=== PATIENT | female | born 1995 | race African-American/Black ===

== ENCOUNTER 2019-07-25 05:25 | Inpatient (IN) ==
[2019-07-25] MEDS ORDERED: LACTATED RINGERS 500 ML IV PRN (05:42)
[2019-07-25] MEDS ORDERED: ONDANSETRON 4 MG/2 ML VIAL IV PRN ×2 (05:42→18:18)
[2019-07-25] MEDS ORDERED: BUTORPHANOL 2 MG/ML VIAL IV PRN (05:42)
[2019-07-25] MEDS ORDERED: MEPERIDINE 50 MG/1 ML VIAL IV PRN (05:42)
[2019-07-25] MEDS ORDERED: OXYTOCIN/LR 20 UNIT/1,000 ML BAG IV SCH (06:00)
[2019-07-25] MEDS: LACTATED RINGERS 1,000 ML IV SCH ×2 (06:10→17:00)
[2019-07-25 06:21] LABS: Basophils % 0.6 % (0.0-0.8); Eosinophils # 0.1 10*3/uL (0.0-0.87); Eosinophils % 1.5 % (0.00-10.9); Hematocrit 33.6 VOL% (35.7-47.0); Hemoglobin 10.5 GM/DL (12.0-16.0); Immature Granulocytes % 0.3 %; Immature Granulocytes Absolute 0.02 #; Lymphocytes # 2.5 10*3/uL (1.4-4.0); Lymphocytes % 37.7 % (21.3-54.2); Mean Corpuscular HGB Conc 31.3 GM/DL (32-36); Mean Corpuscular Volume 90.3 FL (87-102); Mean Platelet Volume 11.1 FL (9.6-12.0); Monocytes % 10.7 % (1.7-12.7); Neutrophils % 49.2 % (38.7-73.9); Platelet Count 305 T/CUMM (130-400); Red Blood Count 3.72 MC/CUMM (3.8-5.5); Red Cell Distribution Width 13.5 % (9.3-17.3); White Blood Count 6.6 T/CUMM (4-12)
[2019-07-25 06:43] LABS: Albumin 2.5 G/DL (3.4-5.0); Bilirubin,Total 0.4 MG/DL (0.2-1.0); Calcium 8.8 MG/DL (8.5-10.1); Osmolality,Calculated 276.4 MOS/KG (273-304); Total Protein 6.7 G/DL (6.4-8.3)
[2019-07-25 06:44] LABS: Eosinophils 1 % (0-10); Hypochromasia 1+; Lymphocytes 29 % (20-55); Platelet Estimate Adequate; Segmented Neutrophils 58 % (50-85); Total Cells Counted 100
[2019-07-25] MEDS ORDERED: AMPICILLIN INJ 2,000 MG in SODIUM CHLORIDE 0.9% 100 ML IV ONE (07:30)
[2019-07-25] MEDS ORDERED: AMPICILLIN INJ 1,000 MG in SODIUM CHLORIDE 0.9% 100 ML IV SCH (11:30)
[2019-07-25] MEDS ORDERED: ePHEDrine 50 MG/ML AMP IV PRN (13:12)
[2019-07-25] MEDS ORDERED: LACTATED RINGERS 1,000 ML IV ONE ×2 (13:12→18:23)
[2019-07-25] MEDS ORDERED: NALOXONE 0.4 MG/ML VIAL IV PRN (13:12)
[2019-07-25] MEDS ORDERED: diphenhydrAMINE 50 MG/1 ML VIAL IV PRN ×2 (13:12→23:16)
[2019-07-25] MEDS ORDERED: FAMOTIDINE 20 MG/2 ML VIAL IV ONE (13:12)
[2019-07-25] MEDS ORDERED: ONDANSETRON 4 MG/2 ML VIAL IV ONE (13:12)
[2019-07-25] MEDS ORDERED: CITRIC ACID/SODIUM CITRATE 30 ML UDCUP PO ONE (13:12)
[2019-07-25] MEDS ORDERED: fentaNYL 2 MCG/ROPIV 0.2% EPID 100 ML EPIDURAL SCH (13:30)
[2019-07-25] MEDS ORDERED: LACTATED RINGERS 1,000 ML IV SCH ×2 (13:30→18:30)
[2019-07-25 15:43] LABS: Apearance,Urine CLEAR (Clear); Bacteria,Urine Occasional /HPF (Few); Bilirubin,Urine Negative (Negative); Blood, Urine Negative (Negative); Glucose,Urine (UA) 50 mg/dL (Negative); Ketones,Urine 80 mg/dL (Negative); Mucus,Urine Occasional /LPF (Occasional); Nitrite,Urine Negative (Negative); Protein,Urine Negative; RBC,Urine 1 /HPF (0-4); Urine Color Yellow (Yellow); Urine Urobilinogen < 2.0 EU/DL (0.2-1.0); WBC,Urine 2 /HPF (0-6)
[2019-07-25] MEDS ORDERED: ceFAZolin 3,000 MG in SYRINGE 1 EACH IV ONE (16:49)
[2019-07-25] MEDS ORDERED: OXYTOCIN 10 UNIT/ML VIAL IM ONE (16:54)
[2019-07-25] MEDS ORDERED: OXYTOCIN/LR 30 UNIT/1,000 ML BAG IV ONE ×2 (16:54→17:15)
[2019-07-25] MEDS ORDERED: CARBOPROST TROMETHAMINE 250 MCG/ML AMP IM ONE (17:10)
[2019-07-25] MEDS ORDERED: TRANEXAMIC ACID 1,000 MG/10 ML VIAL ONE (17:10)
[2019-07-25] MEDS ORDERED: OXYTOCIN/LR 20 UNIT/1,000 ML BAG IV ONE ×2 (17:10→18:18)
[2019-07-25] MEDS ORDERED: METHYLERGONOVINE 0.2 MG/1 ML AMP ONE (17:10)
[2019-07-25] MEDS ORDERED: miSOPROStol 200 MCG TABLET ONE (17:10)
[2019-07-25 18:01] LABS: Cord Arterial Blood HCO3 20.1 MMOL/L
[2019-07-25 18:04] LABS: Cord Venous Blood HCO3 21.2 MMOL/L; Cord Venous Blood PCO2 42.5 MMHG; Cord Venous Blood PO2 26.3
[2019-07-25] MEDS ORDERED: MAGNESIUM HYDROXIDE SUSP 30 ML UDCUP PO PRN (18:18)
[2019-07-25] MEDS ORDERED: RHO(D) IMMUNE GLOBULIN 300 MCG SYRINGE IM ONE (18:18)
[2019-07-25] MEDS ORDERED: ACETAMINOPHEN 325 MG TABLET PO PRN (18:18)
[2019-07-25] MEDS ORDERED: SIMETHICONE CHEW 80 MG TABLET PO PRN (18:18)
[2019-07-25] MEDS ORDERED: MORPHINE 10 MG/10 ML VIAL ONE (18:22)
[2019-07-25] MEDS ORDERED: ONDANSETRON 4 MG/2 ML VIAL ONE (18:22)
[2019-07-25] MEDS ORDERED: LIDOCAINE MPF 2% /EPI 20 ML VIAL ONE (18:23)
[2019-07-25] MEDS ORDERED: KETOROLAC 30 MG/1 ML VIAL ONE (18:23)
[2019-07-25] MEDS ORDERED: PHENYLEPHRINE 1 MG/10 ML SYRINGE IV ONE (18:23)
[2019-07-25] MEDS ORDERED: ceFAZolin 1,000 MG in SYRINGE 1 EACH IV SCH (20:00)
[2019-07-25] MEDS ORDERED: diphenhydrAMINE 2% CREAM 28 GM TUBE TOP PRN (23:17)
[2019-07-25] MEDS: DOCUSATE SODIUM 100 MG CAPSULE PO SCH (23:31)
[2019-07-26 00:48] LABS: Basophils % 0.3 % (0.0-0.8); Eosinophils # 0.1 10*3/uL (0.0-0.87); Eosinophils % 0.5 % (0.00-10.9); Hematocrit 30.3 VOL% (35.7-47.0); Hemoglobin 9.5 GM/DL (12.0-16.0); Immature Granulocytes % 0.4 %; Immature Granulocytes Absolute 0.04 #; Lymphocytes # 2.3 10*3/uL (1.4-4.0); Lymphocytes % 22.1 % (21.3-54.2); Mean Corpuscular HGB Conc 31.4 GM/DL (32-36); Mean Corpuscular Volume 91.3 FL (87-102); Mean Platelet Volume 10.9 FL (9.6-12.0); Monocytes % 11.4 % (1.7-12.7); Neutrophils % 65.3 % (38.7-73.9); Platelet Count 261 T/CUMM (130-400); Red Blood Count 3.32 MC/CUMM (3.8-5.5); Red Cell Distribution Width 13.4 % (9.3-17.3); White Blood Count 10.3 T/CUMM (4-12)
[2019-07-26] MEDS: ceFAZolin 1,000 MG in SYRINGE 1 EACH IV SCH ×2 (01:08→09:59)
[2019-07-26 09:08] LABS: Basophils % 0.4 % (0.0-0.8); Eosinophils # 0.1 10*3/uL (0.0-0.87); Eosinophils % 0.8 % (0.00-10.9); Hematocrit 32.9 VOL% (35.7-47.0); Hemoglobin 10.3 GM/DL (12.0-16.0); Immature Granulocytes % 0.4 %; Immature Granulocytes Absolute 0.04 #; Lymphocytes # 2.5 10*3/uL (1.4-4.0); Lymphocytes % 23.9 % (21.3-54.2); Mean Corpuscular HGB Conc 31.3 GM/DL (32-36); Mean Corpuscular Volume 89.4 FL (87-102); Mean Platelet Volume 10.7 FL (9.6-12.0); Neutrophils % 62.5 % (38.7-73.9); Platelet Count 311 T/CUMM (130-400); Red Blood Count 3.68 MC/CUMM (3.8-5.5); Red Cell Distribution Width 13.5 % (9.3-17.3); White Blood Count 10.5 T/CUMM (4-12)
[2019-07-26] MEDS: FERROUS SULFATE 325 MG TABLET PO SCH (09:56)
[2019-07-26] MEDS: METOCLOPRAMIDE 10 MG TABLET PO SCH ×3 (09:56→23:11)
[2019-07-26] MEDS: DOCUSATE SODIUM 100 MG CAPSULE PO SCH ×2 (09:56→20:16)
[2019-07-26] MEDS: MULTIVITAMIN (PRENATAL) TABLET PO SCH (09:56)
[2019-07-26] MEDS: MAGNESIUM HYDROXIDE SUSP 30 ML UDCUP PO SCH (09:57)
[2019-07-26] MEDS: IBUPROFEN 800 MG TABLET PO PRN ×2 (11:19→23:19)
[2019-07-26] MEDS ORDERED: RHO(D) IMMUNE GLOBULIN 300 MCG SYRINGE IM ONE (18:43)
[2019-07-27 07:25] VITALS: BP 119/63
[2019-07-27] MEDS: MAGNESIUM HYDROXIDE SUSP 30 ML UDCUP PO SCH ×2 (07:36→09:44)
[2019-07-27] MEDS: METOCLOPRAMIDE 10 MG TABLET PO SCH (09:42)
[2019-07-27] MEDS: DOCUSATE SODIUM 100 MG CAPSULE PO SCH (09:42)
[2019-07-27] MEDS: FERROUS SULFATE 325 MG TABLET PO SCH (09:42)
[2019-07-27] MEDS: MULTIVITAMIN (PRENATAL) TABLET PO SCH (09:42)
== END 2019-07-27 13:35 | disposition home or self-care (01) | DRG 540 ==
LOC: N.LDOUT 05:25 → N.LD 05:30 → N.OB 22:47
PROVIDERS: ADMIT Obstetrics & Gynecology; ATTEND Obstetrics & Gynecology
PROC: LDCSECT (ICD-10-PCS; 2019-07-25 17:25)